=== PATIENT | female | born 1970 | race Caucasian/White ===

== ENCOUNTER 2017-12-21 20:22 | Inpatient (IN) | payer OTHER ==
[2017-12-21] MEDS ORDERED: DOCUSATE SODIUM 100 MG CAP PO (21:30)
[2017-12-21] MEDS: BARIUM SULF 2% 450 ML BTL (BERRY SMOOTHIE) PO (21:30)
[2017-12-21] MEDS ORDERED: NACL 0.9% 3 ML SYG IV (21:30)
[2017-12-21] MEDS: SOD CHLORIDE 0.9% 1,000 ML IV (21:49)
[2017-12-21] MEDS: HYDROmorphONE 0.5 MG/0.5 ML SYG IV (21:50)
[2017-12-21] MEDS: ONDANSETRON 4 MG INJ IV (21:50)
[2017-12-22] MEDS: HYDROmorphONE 0.5 MG/0.5 ML SYG IV ×3 (02:00→16:46)
[2017-12-22 05:49] LABS: ADD MAN DIFF? NO
[2017-12-22] MEDS: PANTOPRAZOLE 40 MG INJ IV ×2 (05:58→21:01)
[2017-12-22 06:07] LABS: BASOPHIL # 0.1 10^3/ul (0.0-0.1); BASOPHILS % 0.4 % (0.0-2.0); EOSINOPHILS # 0.1 10^3/ul (0.0-0.5); HEMATOCRIT 39.3 % (37.0-47.0); HEMOGLOBIN 12.4 g/dl (12.0-16.0); LYMPHOCYTES # 2.1 10^3/ul (0.8-2.9); LYMPHOCYTES % 17.2 % (15.0-51.0); MEAN CORPUSCULAR HEMOGLOBIN 27.4 pg (29.0-33.0); MEAN CORPUSCULAR HGB CONC 31.6 g/dl (32.0-37.0); MEAN CORPUSCULAR VOLUME 86.9 fl (82.0-101.0); MEAN PLATELET VOLUME 8.7 fl (7.4-10.4); MONOCYTE # 0.8 10^3/ul (0.3-0.9); MONOCYTES % 6.8 % (0.0-11.0); NEUTROPHILS % 74.2 % (39.0-77.0); PLATELET COUNT 294 10^3/UL (140-415); RED BLOOD COUNT 4.52 10^6/ul (4.20-5.40); RED CELL DISTRIBUTION WIDTH 13.2 % (11.5-14.5)
[2017-12-22 06:07] LABS: WHITE BLOOD COUNT 12.1 10^3/ul (4.8-10.8)
[2017-12-22 06:30] LABS: ANION GAP 13 (8-16); BLOOD UREA NITROGEN 12 mg/dl (7-20); CALCIUM 9.1 mg/dl (8.4-10.2); CARBON DIOXIDE 26 mmol/L (21-31); CHLORIDE 108 mmol/L (97-110); CREATININE 0.53 mg/dl (0.44-1.00); GLUCOSE 98 mg/dl (70-220); POTASSIUM 4.3 mmol/L (3.5-5.1); SODIUM 143 mmol/L (135-144)
[2017-12-22] MEDS ORDERED: PROPRANOLOL (LA) 60 MG CAP PO (09:00)
[2017-12-22] MEDS ORDERED: PANTOPRAZOLE 40 MG INJ IV (09:00)
[2017-12-22] MEDS ORDERED: NON-FORMULARY/PATIENT OWN MED (Thyroid,Pork (Nature-Throid) 32.5 MG) XX (09:00)
[2017-12-22] MEDS: HYDROXYCHLOROQUINE 200 MG TAB PO ×2 (09:16→21:01)
[2017-12-22] MEDS: VITAMIN B COMPLEX/VIT C CAP PO ×2 (09:16→21:01)
[2017-12-22] MEDS: [UNRECOGNIZED DRUG - REMARK] XX ×2 (10:10→18:00)
[2017-12-22] MEDS: SOD CHLORIDE 0.9% 1,000 ML IV ×2 (11:16→23:49)
[2017-12-22] MEDS: HYDROCODONE/APAP (5/325) TAB PO ×2 (11:35→21:14)
[2017-12-22] MEDS: ONDANSETRON 4 MG INJ IV (16:46)
[2017-12-22] MEDS: IOHEXOL 300MG/ML 150 ML BTL (18:44)
[2017-12-22] MEDS: SOD CHLORIDE 0.9% 100 ML (18:44)
[2017-12-22] MEDS: PROPRANOLOL (LA) 60 MG CAP PO (23:02)
[2017-12-23] MEDS: [UNRECOGNIZED DRUG - REMARK] XX ×2 (02:00→09:17)
[2017-12-23] MEDS: HYDROmorphONE 0.5 MG/0.5 ML SYG IV ×2 (02:19→06:38)
[2017-12-23] MEDS: SOD CHLORIDE 0.9% 1,000 ML IV (04:53)
[2017-12-23] MEDS: PANTOPRAZOLE 40 MG INJ IV (05:35)
[2017-12-23 08:20] LABS: ADD MAN DIFF? NO
[2017-12-23 08:26] LABS: BASOPHILS % 0.3 % (0.0-2.0); EOSINOPHILS # 0.3 10^3/ul (0.0-0.5); EOSINOPHILS % 2.7 % (0.0-7.0); HEMOGLOBIN 10.5 g/dl (12.0-16.0); LYMPHOCYTES # 1.7 10^3/ul (0.8-2.9); LYMPHOCYTES % 15.1 % (15.0-51.0); MEAN CORPUSCULAR HEMOGLOBIN 27.7 pg (29.0-33.0); MEAN CORPUSCULAR HGB CONC 31.8 g/dl (32.0-37.0); MEAN CORPUSCULAR VOLUME 87.1 fl (82.0-101.0); MEAN PLATELET VOLUME 8.6 fl (7.4-10.4); MONOCYTE # 0.9 10^3/ul (0.3-0.9); MONOCYTES % 8.1 % (0.0-11.0); NEUTROPHILS % 73.4 % (39.0-77.0); PLATELET COUNT 215 10^3/UL (140-415); RED BLOOD COUNT 3.79 10^6/ul (4.20-5.40); RED CELL DISTRIBUTION WIDTH 13.4 % (11.5-14.5)
[2017-12-23 08:26] LABS: WHITE BLOOD COUNT 10.9 10^3/ul (4.8-10.8)
[2017-12-23 08:50] LABS: MAGNESIUM 1.7 mg/dl (1.7-2.5)
[2017-12-23 08:50] LABS: PHOSPHORUS 3.2 mg/dl (2.5-4.9)
[2017-12-23 09:10] LABS: ALANINE AMINOTRANSFERASE 36 IU/L (13-69); ALBUMIN 3.1 g/dl (3.3-4.9); ALBUMIN/GLOBULIN RATIO 1.03; ALKALINE PHOSPHATASE 71 IU/L (42-121); ANION GAP 12 (8-16); ASPARTATE AMINO TRANSFERASE 26 IU/L (15-46); BILIRUBIN,INDIRECT 0.5 mg/dl (0-1.1); BILIRUBIN,TOTAL 0.5 mg/dl (0.2-1.3); BLOOD UREA NITROGEN 5 mg/dl (7-20); CALCIUM 8.7 mg/dl (8.4-10.2); CARBON DIOXIDE 26 mmol/L (21-31); CHLORIDE 106 mmol/L (97-110); GLUCOSE 87 mg/dl (70-220); SODIUM 140 mmol/L (135-144); TOTAL PROTEIN 6.1 g/dl (6.1-8.1)
[2017-12-23] MEDS ORDERED: OXYCODONE/ACETAMINOPHEN (5/325) TAB (09:20)
[2017-12-23] MEDS: OXYCODONE/ACETAMINOPHEN (5/325) TAB PO ×2 (09:22→13:25)
== END 2017-12-23 14:28 | disposition home or self-care (01) | DRG 375 ==
LOC: PP2 20:22
DX: C78.6 Secondary malignant neoplasm of retroperitoneum and peritoneum (principal); C56.9 Malignant neoplasm of unspecified ovary; M32.9 Systemic lupus erythematosus, unspecified; G43.909 Migraine, unspecified, not intractable, without status migrainosus; K27.9 Peptic ulcer, site unspecified, unspecified as acute or chronic, without hemorrhage or perforation; Z90.722 Acquired absence of ovaries, bilateral; Z98.84 Bariatric surgery status
CPT/HCPCS: 74177; 80048; 80053; 83735; 84100; 85025